=== PATIENT | male | born 1995 | race African-American/Black ===

== ENCOUNTER 2023-12-14 13:18 | Emergency (ER) | payer OTHER ==
[2023-12-14 13:25] VITALS: BP 132/66; PULSE 67; RESP 18; BMI 25.7
[2023-12-14] MEDS ORDERED: FAMOTIDINE 20 MG TABLET ONE (13:48)
[2023-12-14] MEDS ORDERED: MAG HYDROX/AL HYDROX/SIMETH 30 ML UNIT-DOSE CUP ONE (13:48)
[2023-12-14] MEDS: MAG HYDROX/AL HYDROX/SIMETH 30 ML UNIT-DOSE CUP PO ONE (13:53)
[2023-12-14] MEDS: FAMOTIDINE 20 MG TABLET PO ONE (13:53)
[2023-12-14 17:07] LABS: HIV INTERPRETATION NEGATIVE (NEGATIVE)
== END 2023-12-14 15:36 | disposition home or self-care (01) ==
LOC: JER 13:18
DX: K21.00 Gastro-esophageal reflux disease with esophagitis, without bleeding (principal); R10.13 Epigastric pain
CPT/HCPCS: 36415; 86803; 87389; 99283-25